=== PATIENT | male | born 1980 | race Two or more races ===

== ENCOUNTER 2023-09-24 12:24 | Emergency (ER) | payer SELFPAY ==
[~2023-09-24] VITALS: Ht 172.7 cm; Wt 63.6 kg
[2023-09-24 12:28] VITALS: BP 128/95; PULSE 90; RESP 18; O2SAT 96
== END 2023-09-24 13:13 | disposition left against medical advice (07) ==
LOC: EDBD 12:24 → ER 12:24
DX: F55.8 Abuse of other non-psychoactive substances (principal)

== ENCOUNTER 2023-12-05 19:17 | Emergency (ER) | payer MEDICAID, OTHER ==
[~2023-12-05] VITALS: Ht 170.2 cm; Wt 59.0 kg
[2023-12-05 20:43] LABS: Basophils # (auto) 0.1 10 ^3/uL (0-0.2); Basophils % (auto) 0.5 % (0.0-2.0); Eosinophils # (auto) 0.2 10 ^3/uL (0-0.8); Eosinophils % (auto) 2.4 % (0.0-7.0); Hematocrit 43.8 % (41.0-53.0); Hemoglobin 14.9 g/dL (13.5-17.5); Lymphocytes # (auto) 2.5 10 ^3/uL (0.4-5.4); Lymphocytes % (auto) 26.6 % (10.0-50.0); Mean Corpuscular Hemoglobin 28.7 pg (28.0-32.0); Mean Corpuscular Volume 84.4 fL (80.0-100.0); Monocytes # (auto) 0.8 10 ^3/uL (0-1.3); Monocytes % (auto) 8.7 % (0.0-12.0); Neutrophils # (auto) 5.8 10 ^3/uL (1.6-8.6); Neutrophils % (auto) 61.8 % (37.0-80.0); Nucleated Red Blood Cells % 0.1 %; Red Blood Cells 5.19 10^6/uL (4.5-5.90); Red Cell Distribution Width 14.8 % (11.8-14.3); White Blood Cell 9.4 10^3/uL (4.4-10.8)
[2023-12-05] MEDS: SODIUM CHLORIDE 0.9% 1,000 ML IV ONE (20:43)
[2023-12-05 20:52] LABS: Alanine Aminotransferase 31 U/L (7-40); Albumin 4.2 g/dL (3.2-4.8); Alkaline Phosphatase 86 U/L (46-116); Anion Gap 9 (5-15); Aspartate Aminotransferase 32 U/L (13-40); BUN/Creatinine Ratio 11.5 (10.0-20.0); Blood Alcohol < 3.0 mg/dL (<10); Blood Urea Nitrogen 15 mg/dL (9-23); Calcium 9.5 mg/dL (8.5-10.1); Carbon Dioxide 26 mmol/L (20-30); Chloride 105 mmol/L (98-107); Glucose 115 mg/dL (74-106); Potassium 3.8 mmol/L (3.5-5.1); Sodium 140 mmol/L (136-145)
[2023-12-05 20:53] LABS: Bilirubin, Total 0.5 mg/dL (0.2-1.0); Total Protein 6.5 g/dL (5.7-8.2)
[2023-12-05 21:02] LABS: Barbiturate Scree,Urine Neg (NEGATIVE); Benzodiazephine Screen, Urine Neg (NEGATIVE); Cocaine Screen, Urine Neg (NEGATIVE); Opiate Scree,Urine Neg (NEGATIVE); Phencyclidine Screen, Urine Neg (NEGATIVE)
[2023-12-05 21:03] LABS: Cannabinoid Screen, Urine Pos (NEGATIVE)
[2023-12-05 21:08] LABS: Urine Bacteria FEW /hpf (None Seen); Urine Blood TRACE /uL (Negative); Urine Clarity Turbid (Clear); Urine Color Yellow (Yellow); Urine Hyaline Cast FEW /lpf (0 - 2); Urine Mucus FEW (None Seen); Urine Protein, UAD 1+ (Negative); Urine Specific Gravity 1.031 (1.001-1.035); Urine Urobilinogen 2 mg/dL (Negative); Urine WBC 63 /hpf (0 - 3); Urine pH 5.5 (5.0-9.0)
[2023-12-05] MEDS: cefTRIAXone 1GM/50ML D5W 50 ML IV ONE (21:38)
[2023-12-05] MEDS: methylPREDNISolone SOD SUCC 125 MG/2 ML VL IV ONE (21:38)
[2023-12-05] MEDS: ALBUTEROL SULF 2.5 MG/0.5ML(0.5%) NEB SOLN NEB ONE (21:54)
[2023-12-05] MEDS: IPRATROPIUM BROM 0.5 MG/2.5ML INH SOL NEB ONE (21:54)
[2023-12-05 23:14] LABS: Amphetamine Screen, Urine Pos (NEGATIVE)
[2023-12-06 01:00] VITALS: BP 103/51; PULSE 85; RESP 16; TEMP 98; O2SAT 98
[2023-12-06 01:26] LABS: Base Excess -0.8 mmol/L (-2.0-2.0)
== END 2023-12-06 02:29 | disposition left against medical advice (07) ==
LOC: EDBD 19:17 → ER 19:17
DX: T43.652A Poisoning by methamphetamines intentional self-harm, initial encounter (principal); J45.909 Unspecified asthma, uncomplicated; R09.02 Hypoxemia; Y92.89 Other specified places as the place of occurrence of the external cause
CPT/HCPCS: 36415; 36600; 71045; 80053; 80307; 80320; 81001; 82805; 84484; 85025; 93005; 94640; 96361; 96365; 96375; 99291; J0696; J2919; J7030; J7644

== ENCOUNTER 2024-01-02 12:08 | Emergency (ER) | payer MEDICAID ==
[~2024-01-02] VITALS: Ht 167.6 cm; Wt 59.0 kg
[2024-01-02 13:15] VITALS: PULSE 87; RESP 14; O2SAT 95
[2024-01-02 19:31] VITALS: BP 99/54; PULSE 71; RESP 15; TEMP 97.9; O2SAT 98
== END 2024-01-02 20:00 | disposition home or self-care (01) ==
LOC: EDUNIT# 12:08 → ER 12:08 → EDBD 12:08 → ER 20:00
DX: F19.10 Other psychoactive substance abuse, uncomplicated (principal); L55.9 Sunburn, unspecified; J45.909 Unspecified asthma, uncomplicated; F15.90 Other stimulant use, unspecified, uncomplicated

== ENCOUNTER 2024-02-22 09:35 | Emergency (ER) | payer SELFPAY ==
[~2024-02-22] VITALS: Ht 167.6 cm; Wt 60.0 kg
[2024-02-22 12:25] LABS: Amphetamine Screen, Urine Pos (NEGATIVE)
[2024-02-22 12:26] LABS: Benzodiazephine Screen, Urine Neg (NEGATIVE)
[2024-02-22 12:27] LABS: Barbiturate Scree,Urine Neg (NEGATIVE); Cannabinoid Screen, Urine Neg (NEGATIVE); Cocaine Screen, Urine Neg (NEGATIVE); Opiate Scree,Urine Neg (NEGATIVE); Phencyclidine Screen, Urine Neg (NEGATIVE)
[2024-02-22 16:53] VITALS: BP 107/63; PULSE 104; RESP 15; TEMP 97.2; O2SAT 96
== END 2024-02-22 17:02 | disposition home or self-care (01) ==
LOC: ER 09:35 → EDBD 09:35 → ER 17:02
DX: T40.601A Poisoning by unspecified narcotics, accidental (unintentional), initial encounter (principal); Y92.89 Other specified places as the place of occurrence of the external cause; F17.210 Nicotine dependence, cigarettes, uncomplicated; F12.90 Cannabis use, unspecified, uncomplicated; F15.90 Other stimulant use, unspecified, uncomplicated; J45.909 Unspecified asthma, uncomplicated; Z59.00 Homelessness unspecified
CPT/HCPCS: 80307; 99291